=== PATIENT | male | born 1955 | race Caucasian/White ===

== ENCOUNTER → 2016-06-02 | Outpatient (CLI) | payer BC ==
[~2016-06-02] VITALS: Ht 188 cm; Wt 116.4 kg
[~2016-06-02] MED LIST: COZAAR100 MG PO; LIPITOR 10MG10 MG; NORCO 325 MG-51 TAB PO
[2016-06-02 07:12] VITALS: BP 132/67; PULSE 56
[2016-06-02 08:45] VITALS: PULSE 50
== END ==
LOC: COL.RAD 06:54
DX: M54.5 Low back pain (principal)
CPT/HCPCS: J3301

== ENCOUNTER → 2017-01-11 | Outpatient (CLI) | payer BC ==
[2017-01-11 11:53] LABS: ARTERIAL BLD GAS O2 SATURATION 94.5 % (92-100); ARTERIAL BLD GAS TCO2 CT 22.5; ARTERIAL BLOOD GAS BASE EXCESS -1.5 (-2-2); ARTERIAL BLOOD GAS HCO3 21.5 meq/L (22-26); ARTERIAL BLOOD GAS PHT 7.44 C (7.35-7.45); ARTERIAL BLOOD GAS PO2 68.4 mmHg (80-100); ARTERIAL BLOOD GAS PO2T 68.4 (80-100); ARTERIAL BLOOD GAS pH 7.44 (7.35-7.45); OXYHEMOGLOBIN 89.4 %
[2017-01-11 11:54] LABS: ALLEN TEST YES; ALLENS TEST RESULT PASS; ATS? YES
== END ==
LOC: COL.PUL 11:14
PROVIDERS: Nurse Practitioner Family
DX: J44.1 Chronic obstructive pulmonary disease with (acute) exacerbation (principal)

== ENCOUNTER → 2017-06-26 | Outpatient (CLI) | payer BC | LOC: COL.RAD 09:31 | DX: R91.8 Other nonspecific abnormal finding of lung field (principal); I25.10 Atherosclerotic heart disease of native coronary artery without angina pectoris ==

== ENCOUNTER 2018-12-06 12:44 | Emergency (ER) | payer BC ==
[~2018-12-06] VITALS: Ht 185.4 cm; Wt 122.7 kg
[2018-12-06 12:46] VITALS: TEMP 98.5
[2018-12-06 13:11] LABS: BASO % 0.3 % (0.0-2.0); EOS % 0.3 % (0-4.0); GRAN # 6.5 (1.4-6.5); GRAN % 73.4 % (42.2-75.2); HEMATOCRIT 41.3 % (42.0-52.0); HEMOGLOBIN 14.3 g/dl (13.5-18.0); LYMPH # 1.6 (1.2-3.4); LYMPH % 17.7 % (20.0-51.0); MEAN CELL VOLUME 84 fl (80.0-100.0); MEAN CORPUSCULAR HEMOGLOBIN 29 pg (27.0-31.0); MEAN CORPUSCULAR HGB CONC 35 g/dl (33.0-37.0); MEAN PLATELET VOLUME 9.2 fl (7.4-10.4); MONO # 0.7 (0.1-0.6); MONO % 7.6 % (1.7-9.3); PLATELET COUNT 188 K/mm3 (130-400); RED BLOOD COUNT 4.93 M/mm3 (4.20-5.60); REDCELL DISTRIBUTION WIDTH-CV 13.9 % (11.5-14.5)
[2018-12-06 13:17] LABS: PROTHROMBIN TIME 11.2 SECONDS (9.7-12.8)
[2018-12-06 13:22] LABS: ALANINE AMINOTRANSFERASE 25 U/L (21-72); ALBUMIN 4.3 gm/dL (3.5-5.0); ALKALINE PHOSPHATASE 84 U/L (50-136); ANION GAP 12 mmol/L (7-16); AST,SGOT 33 U/L (15-37); BILIRUBIN,TOTAL 0.9 mg/dL (0.0-1.0); BLOOD UREA NITROGEN 22 mg/dL (9-20); CALCIUM 9.7 mg/dL (8.4-10.2); CARBON DIOXIDE 22 mmol/L (22-30); CHLORIDE 107 mmol/L (98-107); CREATININE, serum 1.17 (0.66-1.25); GLUCOSE 89 mg/dL (74-106); SODIUM 140 mmol/L (137-145); TOTAL PROTEIN 7.8 gm/dL (6.4-8.2)
[2018-12-06 13:34] LABS: TROPONIN-I < 0.012 ng/mL (0.000-0.035)
[2018-12-06] MEDS ORDERED: PREDNISONE20 MG PO (14:36)
[2018-12-06 15:20] VITALS: BP 134/110; PULSE 69
== END 2018-12-06 15:25 | disposition home or self-care (01) ==
LOC: COL.ER 12:44
PROVIDERS: Emergency Medicine
DX: R06.02 Shortness of breath (principal); I10 Essential (primary) hypertension; F17.210 Nicotine dependence, cigarettes, uncomplicated
CPT/HCPCS: J2060; J2930

== ENCOUNTER 2019-02-27 08:24 | Day surgery (SDC) | payer BC ==
[2019-02-27] VITALS (9 sets, daily range): BP systolic 111–154; BP diastolic 66–103; PULSE 53–84; TEMP 97.3–98.6
[~2019-02-27] VITALS: Ht 185.4 cm; Wt 134.0 kg
[~2019-02-27 08:24] MED LIST changes: +PREDNISONE20 MG PO
[2019-02-27] MEDS ORDERED: NORVASC 5MG5 MG/TAB PO (09:03)
[2019-02-27] MEDS ORDERED: ASPIRIN E.C. 8181 MG PO (09:04)
[2019-02-27] MEDS ORDERED: ARICEPT 5MG PO (09:05)
[2019-02-27] MEDS ORDERED: 00186-0370-20 IH (09:05)
[2019-02-27 09:07] LABS: HEMATOCRIT 40.8 % (42.0-52.0); HEMOGLOBIN 13.5 g/dl (13.5-18.0); MEAN CELL VOLUME 87 fl (80.0-100.0); MEAN CORPUSCULAR HEMOGLOBIN 29 pg (27.0-31.0); MEAN CORPUSCULAR HGB CONC 33 g/dl (33.0-37.0); MEAN PLATELET VOLUME 9.4 fl (7.4-10.4); PLATELET COUNT 182 K/mm3 (130-400); RED BLOOD COUNT 4.71 M/mm3 (4.20-5.60); REDCELL DISTRIBUTION WIDTH-CV 13.5 % (11.5-14.5)
[2019-02-27 09:11] LABS: INR 0.9 (0.8-3.0); PROTHROMBIN TIME 10.6 SECONDS (9.7-12.8)
[2019-02-27 09:17] LABS: POTASSIUM 4.6 mmol/L (3.4-5.0)
--- NOTE | 2019-02-27 10:30 | NUR ---
SEE MERGE REPORT FOR MEDICATION ADMINISTRATION TIMES WELL INTRA/POST SEDATION ASSESSMENTS.
--- NOTE | 2019-02-27 16:17 | NUR ---
MANPREET met with the patient and his children to discuss a discharge plan. The patient live in [place] with his son Jr Corey. The patient has a cane he uses occasionally. The patient's PCP is Dr. Byrnes and patient receives medication from [facility] with no difficulties. The patient does not have advanced directives in the EMR but reports they are in the process of being completed and they will designate the patient's [id number]. The patient plans to return home upon discharge with his son providing transportation. There are no additional needs at this time.
--- NOTE | 2019-02-27 20:18 | NUR ---
Resting in bed. Assessment complete. Lungs clear-unprodcutive cough present. Heart sounds irregular. Bowels active x4. Pulses strong throughout. Bilateral lower leg edema +1 present. Left chest pacer site CDI with gauze. Rating pain 4/10. Not due for tylenol until 2300. Refused norco. Denies other needs at this time. Call light in reach.
--- NOTE | 2019-02-28 00:05 | NUR ---
Resting in bed. Reports no pain at this time. Dressing to left chest CDI. Call light in reach
[2019-02-28 00:06] VITALS: BP 128/65; PULSE 69; TEMP 97.5
[2019-02-28 03:57] VITALS: BP 151/78; PULSE 77; TEMP 97.9
--- NOTE | 2019-02-28 05:46 | NUR ---
Patient had uneventful night. Sitting in recliner this AM. Pacemaker site remains CDI. Denies pain. Call light in reach.
--- NOTE | 2019-02-28 06:54 | NUR ---
Report given to SALAZAR Ricardo
[2019-02-28 07:40] VITALS: BP 136/67; PULSE 69; TEMP 98.5
[2019-02-28 08:42] LABS: HEMATOCRIT 40.3 % (42.0-52.0); HEMOGLOBIN 13.4 g/dl (13.5-18.0); RED BLOOD COUNT 4.67 M/mm3 (4.20-5.60)
[2019-02-28 08:43] LABS: BASO % 0.4 % (0.0-2.0); EOS % 0.2 % (0-4.0); GRAN # 6.8 (1.4-6.5); GRAN % 83.4 % (42.2-75.2); LYMPH # 0.9 (1.2-3.4); LYMPH % 10.5 % (20.0-51.0); MEAN CELL VOLUME 86 fl (80.0-100.0); MEAN CORPUSCULAR HEMOGLOBIN 29 pg (27.0-31.0); MEAN CORPUSCULAR HGB CONC 33 g/dl (33.0-37.0); MEAN PLATELET VOLUME 9.5 fl (7.4-10.4); MONO # 0.4 (0.1-0.6); MONO % 4.9 % (1.7-9.3); PLATELET COUNT 167 K/mm3 (130-400); REDCELL DISTRIBUTION WIDTH-CV 13.5 % (11.5-14.5)
[2019-02-28 08:52] LABS: CALCIUM 8.8 mg/dL (8.4-10.2); CREATININE, serum 1.13 (0.66-1.25); POTASSIUM 4.2 mmol/L (3.4-5.0)
[2019-02-28 10:40] VITALS: BP 137/83; PULSE 94; TEMP 98.8
[2019-02-28] MEDS ORDERED: TIAZAC180 MG PO (12:49)
[2019-02-28] MEDS ORDERED: CEPHALEXIN500 M1 PO (12:49)
--- NOTE | 2019-02-28 13:10 | NUR ---
Initial visit; Patient and son thanked [employer] for stopping though declined spiritual care.
--- NOTE | 2019-02-28 14:50 | NUR ---
DISCHARGE EDUCATION WAS PROVIDED. SIGANTURES OBTAINED. PT VOICED KNOWLEDGE OF PACER CARE SITE. IV AND TELE REMOVED. NO QUESTIONS VOICED. THIS NURSE ESCORTED PT ROBI, PT SON HERE AND PROVIDED RIDE HOME.
== END 2019-02-28 14:50 | disposition home or self-care (01) ==
LOC: COL.CAR 08:24 → MEDICAL 12:24 → COL.CAR 02-28 14:50
PROVIDERS: Internal Medicine Cardiovascular Disease
DX: I49.5 Sick sinus syndrome (principal); Z88.8 Allergy status to other drugs, medicaments and biological substances
CPT/HCPCS: OP; C1785; C1894; C1898; J0690; J2250; J3010; J7030; Q9967

== ENCOUNTER 2019-05-28 07:46 | Day surgery (SDC) | payer BC ==
[~2019-05-28] VITALS: Ht 185.4 cm; Wt 141.2 kg
[~2019-05-28 07:46] MED LIST changes: +00186-0370-20 IH; +ARICEPT 5MG PO; +ASPIRIN E.C. 8181 MG PO; +CEPHALEXIN500 M1 PO; +NORVASC 5MG5 MG/TAB PO; +TIAZAC180 MG PO
[2019-05-28 08:52] LABS: HEMATOCRIT 40.7 % (42.0-52.0); HEMOGLOBIN 13.3 g/dl (13.5-18.0); MEAN CELL VOLUME 84 fl (80.0-100.0); MEAN CORPUSCULAR HEMOGLOBIN 28 pg (27.0-31.0); MEAN CORPUSCULAR HGB CONC 33 g/dl (33.0-37.0); PLATELET COUNT 199 K/mm3 (130-400); RED BLOOD COUNT 4.82 M/mm3 (4.20-5.60); REDCELL DISTRIBUTION WIDTH-CV 13.9 % (11.5-14.5)
[2019-05-28] MEDS ORDERED: TIAZAC240 MG PO (08:58)
[2019-05-28 09:00] LABS: INR 2.2 (0.8-3.0); PROTHROMBIN TIME 25.8 SECONDS (9.7-12.8)
[2019-05-28] MEDS ORDERED: HCTZ12.5TAB PO (09:00)
[2019-05-28] MEDS ORDERED: COUMADIN 5MG5 MG/TAB PO (09:01)
[2019-05-28 09:02] LABS: PARTIAL THROMBOPLASTIN TIME 49.3 SECONDS (26.0-37.0)
[2019-05-28 09:03] VITALS: BP 129/81; PULSE 71; TEMP 98.4
[2019-05-28 09:11] LABS: CALCIUM 8.9 mg/dL (8.4-10.2); CREATININE, serum 1.04 (0.66-1.25); MAGNESIUM 1.9 mg/dL (1.6-2.3); POTASSIUM 4.3 mmol/L (3.4-5.0)
[2019-05-28] MEDS ORDERED: TAMBOCOR 1100 MG/TAB PO (09:23)
[2019-05-28 09:41] LABS: THYROID STIMULATING HORMONE 3.43 uIU/mL (0.465-4.680)
--- NOTE | 2019-05-28 09:59 | NUR ---
Procedure cancelled by Dr Morfin.Discharge instructions given to pt.Pt verbalizes understanding.INT removed,catheter tip intact.
--- NOTE | 2019-05-28 10:06 | NUR ---
Pt discharged at this time via ambulatory.
== END 2019-05-28 10:06 | disposition home or self-care (01) ==
LOC: COL.CAR 07:46
PROVIDERS: Internal Medicine Cardiovascular Disease
DX: I48.91 Unspecified atrial fibrillation (principal); I47.1 Supraventricular tachycardia
CPT/HCPCS: J2250; J2704

== ENCOUNTER → 2019-12-02 | Outpatient (CLI) | payer BC ==
[~2019-12-02] MED LIST changes: +COUMADIN 5MG5 MG/TAB PO; +HCTZ12.5TAB PO; +TAMBOCOR 1100 MG/TAB PO; +TIAZAC240 MG PO
== END ==
LOC: COL.RAD 07:24
DX: M54.5 Low back pain (principal); G89.29 Other chronic pain
CPT/HCPCS: J3301

== ENCOUNTER → 2019-12-26 | Outpatient (CLI) | payer BC | LOC: COL.CARD 11:20 | DX: R41.82 Altered mental status, unspecified (principal); Z86.79 Personal history of other diseases of the circulatory system; T14.8XXA Other injury of unspecified body region, initial encounter; Z87.820 Personal history of traumatic brain injury ==

== ENCOUNTER → 2020-09-03 | Outpatient (CLI) | payer MEDICARE | LOC: COL.CARD 12:28 | DX: R41.82 Altered mental status, unspecified (principal); T14.8XXA Other injury of unspecified body region, initial encounter; Z87.820 Personal history of traumatic brain injury; Z86.79 Personal history of other diseases of the circulatory system ==

== ENCOUNTER 2021-05-06 14:00 | Outpatient (CLI) | payer MEDICARE ==
[2021-05-06] VITALS (8 sets, daily range): BP systolic 98–131; BP diastolic 56–83; PULSE 65–100; TEMP 99.9
[~2021-05-06] VITALS: Ht 185.4 cm; Wt 141.8 kg
[~2021-05-06 14:00] MED LIST changes: +HCTZ 25MG TAB25 MG PO; -HCTZ12.5TAB PO
[2021-05-06] MEDS ORDERED: TRELEGY ELLIPT1 EACH IH (14:25)
== END 2021-05-06 16:26 ==
LOC: EUO 14:00
DX: U07.1 COVID-19 (principal); E66.9 Obesity, unspecified; I25.10 Atherosclerotic heart disease of native coronary artery without angina pectoris
CPT/HCPCS: M0247; Q0247

== ENCOUNTER → 2022-07-27 | Outpatient (CLI) | payer MEDICARE ==
[~2022-07-27] MED LIST changes: +TRELEGY ELLIPT1 EACH IH
== END ==
LOC: COL.RAD 09:36
DX: Z12.2 Encounter for screening for malignant neoplasm of respiratory organs (principal); R91.8 Other nonspecific abnormal finding of lung field; F17.210 Nicotine dependence, cigarettes, uncomplicated